=== PATIENT | male | born 1995 | race Caucasian/White ===

== ENCOUNTER 2021-01-11 04:44 | Emergency (ER) | payer OTHER ==
[~2021-01-11] VITALS: Ht 188 cm; Wt 124.9 kg
[2021-01-11 04:45] VITALS: BP 136/79
[2021-01-11] MEDS ORDERED: ACETAMINOPHEN 325 MG TAB PO ONE (05:20)
[2021-01-11] MEDS ORDERED: ACET-907 PO (05:26)
[2021-01-11] MEDS ORDERED: IBUP80TA PO (05:28)
[2021-01-11] MEDS ORDERED: ATRO0.063 INH (06:01)
== END 2021-01-11 06:31 | disposition home or self-care (01) ==
LOC: M ED 04:44
DX: U07.1 COVID-19 (principal)
CPT/HCPCS: 99282; U0003